=== PATIENT | female | born 1980 | race African-American/Black ===

== ENCOUNTER 2018-04-24 11:16 | Emergency (ER) | payer OTHER ==
[2018-04-24 11:31] VITALS: BMI 25.7
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
[2018-04-24] MEDS ORDERED: KETOROLAC TROMETHAMINE 30 MG/1 ML VIAL IM ONE (12:48)
[2018-04-24] MEDS ORDERED: diazePAM 2 MG TABLET PO ONE (12:48)
[2018-04-24] MEDS ORDERED: diazePAM 2 MG TABLET ONE (12:55)
[2018-04-24] MEDS ORDERED: KETOROLAC TROMETHAMINE 30 MG/1 ML VIAL ONE (12:55)
[2018-04-24 14:25] VITALS: BP 127/73; PULSE 77; TEMP 97.9
--- NOTE | 2018-05-04 10:25 | EKG ---
Test Reason : Blood Pressure : / mmHG Vent. Rate : 080 BPM Atrial Rate : 080 BPM P-R Int : 124 ms QRS Dur : 072 ms QT Int : 342 ms P-R-T Axes : 080 055 049 degrees QTc Int : 394 ms NORMAL SINUS RHYTHM POSSIBLE LEFT ATRIAL ENLARGEMENT BORDERLINE ECG NO PREVIOUS ECGS AVAILABLE Confirmed by BENIGNO FERNANDEZ MD ([id number]) on 05/04/2018 10:24:40 AM Referred By: Confirmed By:BENIGNO FERNANDEZ MD
== END 2018-04-24 14:52 | disposition home or self-care (01) ==
LOC: JER 11:16
PROC: 3E0233Z Introduction of Anti-inflammatory into Muscle, Percutaneous Approach (ICD-10-PCS; principal; 2018-04-24)
DX: S29.8XXA Other specified injuries of thorax, initial encounter (principal); S93.492A Sprain of other ligament of left ankle, initial encounter; M54.5 Low back pain; S09.8XXA Other specified injuries of head, initial encounter; V47.6XXA Car passenger injured in collision with fixed or stationary object in traffic accident, initial encounter; Y92.411 Interstate highway as the place of occurrence of the external cause; Y93.89 Activity, other specified; Y99.8 Other external cause status
CPT/HCPCS: 71046-TC-FY; 73610-TC-RT-FY; 73630-TC-RT-FY; 93005; 93010; 99282-25